=== PATIENT | female | born 1975 | race Caucasian/White ===

== ENCOUNTER 2024-01-17 19:42 | Emergency (ER) | payer SELFPAY ==
[~2024-01-17] VITALS: Ht 172.7 cm; Wt 60.8 kg
[2024-01-17 19:43] VITALS: BP 131/81; PULSE 77; RESP 18; TEMP 98.2
[2024-01-17] MEDS: IBUPROFEN 600 MG TABLET PO ONE (20:53)
== END 2024-01-17 21:50 | disposition home or self-care (01) ==
LOC: EDH 19:42
DX: S52.291A Other fracture of shaft of right ulna, initial encounter for closed fracture (principal); Z98.890 Other specified postprocedural states; X58.XXXA Exposure to other specified factors, initial encounter; Y93.89 Activity, other specified; Y92.89 Other specified places as the place of occurrence of the external cause; Y99.8 Other external cause status
CPT/HCPCS: 73060; 73090

== ENCOUNTER → 2024-10-24 | Outpatient (CLI) | payer OTHER ==
--- NOTE | 2024-10-24 16:58 | HMCIMG ---
Exam Type: FOREARM 2VWS RT Clinical Information: RIGHT ARM PAIN Comparison: None Findings: The bone examination is unremarkable. No fractures or dislocations are seen. No radiopaque foreign bodies are noted. Soft tissues are preserved. IMPRESSION: Normal examination.
--- NOTE | 2024-10-24 16:59 | HMCIMG ---
Exam Type: SHOULDER COMP 2+VWS RT Clinical Information: RIGHT SHOULDER PAIN Comparison: None FINDINGS and impression: There is widening of the acromioclavicular joint between the neutral and the rotation views which suggests acromioclavicular ligament disruption. No acute fractures or dislocations or other abnormalities.
--- NOTE | 2024-10-24 17:00 | HMCIMG ---
Lumbar spine 2 views Comparison Study: none History: BACK PAIN Findings: Exam of the lumbosacral spine demonstrates no evidence of fracture or subluxation. There are moderate spondylitic changes. The facet joints show moderate degenerative changes. The alignment of the spine is normal. There is narrowing of the L4-5 and L5-S1 discs consistent with degenerative disc disease. The other disc spaces are intact. Bone mineralization is normal. Impression: Spondylitic changes and degenerative changes of the apophyseal joints as noted.
== END | disposition home or self-care (01) ==
LOC: RAH 16:13
PROVIDERS: ATTEND Internal Medicine
DX: M47.816 Spondylosis without myelopathy or radiculopathy, lumbar region (principal); M48.07 Spinal stenosis, lumbosacral region; M25.811 Other specified joint disorders, right shoulder; M25.511 Pain in right shoulder; M79.601 Pain in right arm; M54.9 Dorsalgia, unspecified
CPT/HCPCS: 72100; 73030; 73090